=== PATIENT | male | born 1950 | race Caucasian/White ===

== ENCOUNTER 2020-11-01 09:57 | Inpatient (IN) | payer MEDICARE, OTHER ==
[~2020-11-01] VITALS: Ht 175.3 cm; Wt 75.7 kg
--- NOTE | 2020-11-01 08:20 | NUR ---
RN NOTES NOTED PT'S TEMP 100.6@2009. PRN MEDS GIVEN AND COOLING MEASURES PROVIDED. RESPIRATORY SUPERVISOR MADE AWARE. WILL RE-EVALUATE AFTER 30 MINUTES- 1 HOUR. WILL CONTINUE TO MONITOR Addendum: 11/01/20 at 2333 by CARLOS PURI RN correction: wrong time entry; should be 2020
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
[2020-11-01] MEDS ORDERED: EZET10TA6 PO (10:11)
[2020-11-01] MEDS ORDERED: METO25TA3 PO (10:11)
[2020-11-01] MEDS ORDERED: ERGO500014 PO (10:11)
[2020-11-01] MEDS ORDERED: DONE10TA44 PO (10:11)
[2020-11-01] MEDS ORDERED: METF-440 PO (10:11)
[2020-11-01] MEDS ORDERED: ICOS1CAP PO (10:11)
[2020-11-01] MEDS ORDERED: VALP250C3 PO (10:11)
[2020-11-01] MEDS ORDERED: PARO-64 PO (10:11)
[2020-11-01] MEDS ORDERED: ATOR10TA PO (10:11)
[2020-11-01] MEDS ORDERED: ACET-2605 PO (10:11)
[2020-11-01] MEDS ORDERED: CYAN-51 PO (10:11)
[2020-11-01] MEDS ORDERED: ASPI-1420 PO (10:11)
--- NOTE | 2020-11-01 10:11 | NUR ---
PATIENT TAKEN TO RADIOLOGY FOR CT.
--- NOTE | 2020-11-01 11:02 | NUR ---
CALLED DR. HERNANDEZ [phone]
--- NOTE | 2020-11-01 11:06 | NUR ---
CALLED JENNIFFER GUERIN [phone] IN SURGERY ASKED TO CALL US BACK.
--- NOTE | 2020-11-01 11:06 | NUR ---
CALLED FOR BED.
--- NOTE | 2020-11-01 11:25 | NUR ---
CEPHALOMETRIC TRACER AT BEDSIDE
[2020-11-01 11:36] LABS: BASOPHILS # (AUTO) 0.2 /CMM (0.0-0.2); BASOPHILS % (AUTO) 1.5 % (0.0-2.0); HEMATOCRIT 34 % (39-51); HEMOGLOBIN 11.4 g/dL (13.5-17.5); LYMPHOCYTES # (AUTO) 1.1 /CMM (0.8-4.8); LYMPHOCYTES % (AUTO) 9.4 % (20.0-44.0); MEAN CORPUSCULAR HGB CONC 34 g/dl (31.0-36.0); MEAN CORPUSCULAR VOLUME 89 fL (80-96); MONOCYTES # (AUTO) 1.6 /CMM (0.1-1.30); MONOCYTES % (AUTO) 13.5 % (2.0-12.0); NEUTROPHILS # (AUTO) 8.9 /CMM (1.8-8.9); NEUTROPHILS % (AUTO) 75.6 % (43.0-81.0); PLATELET COUNT (AUTO) 203 /CMM (150-450); RED BLOOD CELL COUNT(AUTO) 3.79 MIL/uL (4.5-6.0); WHITE BLOOD COUNT (AUTO) 11.8 K/uL (4.3-11.0)
[2020-11-01 11:40] LABS: CALCIUM, SERUM 8.8 mg/dL (8.5-10.1); CREATININE 1.1 mg/dL (0.6-1.3); POTASSIUM 4.6 mmol/L (3.5-5.1)
--- NOTE | 2020-11-01 11:47 | NUR ---
REPORT GIVEN TO CARLOS SILVA FOR [facility].
--- NOTE | 2020-11-01 11:48 | NUR ---
RECEIVED REPORT FROM BOOGIE SILVA FOR [facility].
--- NOTE | 2020-11-01 11:56 | NUR ---
LAB CALLED PT COVID RESULT NEGATIVE (-)
[2020-11-01] MEDS ORDERED: ACETAMINOPHEN 325 MG TABLET PO PRN (12:00)
[2020-11-01] MEDS ORDERED: MISCELLANEOUS MED 1 EA EA PO PRN (12:00)
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
--- NOTE | 2020-11-01 12:11 | NUR ---
PATIENT TRANSFERRED TO ROOM 108, NO DISTRESS NOTED.
[2020-11-01] MEDS ORDERED: MORPHINE SULFATE INJ 2 MG/ML DISP.SYRIN IV PRN (12:30)
[2020-11-01] MEDS ORDERED: MORPHINE SULFATE INJ 4 MG/ML DISP.SYRIN IV PRN (12:30)
[2020-11-01] MEDS ORDERED: ONDANSETRON HCL/PF 4 MG/2 ML VIAL IVP PRN (12:30)
--- NOTE | 2020-11-01 14:40 | NUR ---
SPOKE TO PATIENT'S BROTHER, RAYMUNDO SEE. PATIENT STATED THAT HE IS THE PRIMARY DECISION MAKER IN HIS BROTHER'S CARE. REQUESTS TO BE KEPT UP TO DATE REGARDING ORTHO CONSULT TO KNOW IF HIS BROTHER NEEDS SURGERY. PHONE NUMBER: [phone]
[2020-11-01 16:00] VITALS: BP 138/82
[2020-11-01] MEDS: VALPROIC ACID 250 MG/5 ML UDC PO SCH (16:42)
[2020-11-01] MEDS: METFORMIN 500 MG TABLET PO SCH (16:42)
--- NOTE | 2020-11-01 18:27 | NUR ---
CLOSING NOTE PATIENT IN BED, RESTING. NO S/S OF DISTRESS AT THIS TIME. WILL ENDORSE TO HELPER MARBLE FINISHER NURSE FOR [facility].
--- NOTE | 2020-11-01 19:30 | NUR ---
RN OPENING NOTES: RECEIVED PT A/OX 2-3 IN BED RESTING COMFORTABLY. PATIENT IN NO S/SX OF ACUTE DISTRESS AT THIS TIME. NO SOB NOTED. PATIENT'S BREATHING IS EVEN AND UNLABORED. PATIENT IS ON ROOM AIR; TOLERATING WELL; WITH 02 SAT OF >95%. PATIENT ON REGULAR DIET. NOTED IV SITE ON R FA: 20; PATENT, INTACT AND FLUSHING WELL; NO S/S OF INFECTION OR INFILTRATION.SAFETY MEASURES HAVE BEEN PROVIDED AND IMPLEMENTED. PATIENT BED ALARM IS ON. HEAD OF BED ELEVATED. BED IS LOCKED, IN LOWEST POSITION AND SIDE RAILS UP. CALL LIGHT WITHIN REACH OF THE PATIENT. APPLICABLE ISOLATION PRECAUTIONS IN PLACE. WILL CONTINUE TO MONITOR AND REASSESS FOR ANY CHANGES AND WILL CARRY OUT ANY ONGOING AND ACTIVE MD ORDER.
[2020-11-01 20:00] VITALS: BP 119/80
--- NOTE | 2020-11-01 20:20 | NUR ---
RN NOTES NOTED PT'S TEMP 100.6@2009. PRN MEDS GIVEN AND COOLING MEASURES PROVIDED. SPECIFICATION CONSULTANT MADE AWARE. WILL RE-EVALUATE AFTER 30 MINUTES- 1 HOUR. WILL CONTINUE TO MONITOR Addendum: 11/01/20 at 2334 by CARLOS PURI RN @2100 PT'S TEMP @98.2
[2020-11-01] MEDS: EZETIMIBE 10 MG TABLET PO SCH (21:28)
[2020-11-01] MEDS: DONEPEZIL 5 MG TABLET PO SCH (21:28)
[2020-11-01] MEDS: ATORVASTATIN 10 MG TABLET PO SCH (21:29)
--- NOTE | 2020-11-01 23:00 | NUR ---
RN NOTES NO CHANGE IN PATIENT CONDITION AT THIS TIME PATIENT VITALS STABLE, NO SIGNS OF ACUTE RESPIRATORY DISTRESS. BOBBIN HANDLER MADE AWARE. WILL CONTINUE TO MONITOR AND REASSESS FOR ANY CHANGES THROUGHOUT THE SHIFT.
--- NOTE | 2020-11-02 03:00 | NUR ---
RN NOTES PATIENT REMAINS IN NO ACUTE RESPIRATORY DISTRESS AT THIS TIME, NO CHANGES TO CONDITION/STATUS. QUALITY TECH WELL AWARE. WILL CONTINUE TO MONITOR AND REASSESS FOR ANY CHANGES THROUGHOUT THE SHIFT
[2020-11-02 04:00] VITALS: BP 118/71
[2020-11-02 06:29] LABS: BASOPHILS % (AUTO) 0.2 % (0.0-2.0); EOSINOPHILS % (AUTO) 0.2 % (0.0-6.0); HEMATOCRIT 30 % (39-51); HEMOGLOBIN 9.9 g/dL (13.5-17.5); LYMPHOCYTES # (AUTO) 2.3 /CMM (0.8-4.8); LYMPHOCYTES % (AUTO) 20.7 % (20.0-44.0); MEAN CORPUSCULAR HGB CONC 33 g/dl (31.0-36.0); MEAN CORPUSCULAR VOLUME 88 fL (80-96); MONOCYTES % (AUTO) 17.5 % (2.0-12.0); NEUTROPHILS % (AUTO) 61.4 % (43.0-81.0); PLATELET COUNT (AUTO) 173 /CMM (150-450); RED BLOOD CELL COUNT(AUTO) 3.41 MIL/uL (4.5-6.0); WHITE BLOOD COUNT (AUTO) 11.3 K/uL (4.3-11.0)
[2020-11-02 06:41] LABS: CALCIUM, SERUM 8.8 mg/dL (8.5-10.1); CREATININE 0.7 mg/dL (0.6-1.3); POTASSIUM 4.5 mmol/L (3.5-5.1)
--- NOTE | 2020-11-02 06:57 | NUR ---
RN CLOSING NOTE: PATIENT REMAINS IN ROOM RESTING COMFORTABLY.NO SIGNS OF RESPIRATORY DISTRESS PATIENT STILL ON ROOM AIR ;TOLERATING WELL SATURATING @ >95% SP02.PATIENT IS CLEAN , DRY AND COMFORTABLE THROUGHOUT THE SHIFT. ALL DUE MEDS GIVEN ORDERED ; PATIENT TOLERATED WELL. SAFETY MEASURES IMPLEMENTED, BED IN LOWEST POSITION, LOCKED, SIDE RAILS UP, CALL LIGHT WITHIN REACH. PATIENT ENDORSED TO INCOMING SHIFT RN WITH STABLE VITAL SIGN AND FOR CONTINUITY OF CARE.
--- NOTE | 2020-11-02 07:20 | NUR ---
RN OPENING NOTE PATIENT RECEIVED IN ROOM RESTING COMFORTABLY. NO SIGNS OF RESPIRATORY DISTRESS AND PATIENT ON ROOM AIR TOLERATING WELL SATURATING. SAFETY MEASURES IMPLEMENTED, BED LOCKED IN LOWEST POSITION, SIDE RAILS UP X2, CALL LIGHT WITHIN REACH. WILL CONTINUE TO MONITOR AND PROVIDE CARE THROUGHOUT SHIFT.
[2020-11-02] MEDS: PANTOPRAZOLE 40 MG VIAL IV SCH (08:48)
[2020-11-02] MEDS: VALPROIC ACID 250 MG/5 ML UDC PO SCH ×2 (08:50→17:00)
[2020-11-02] MEDS: PAROXETINE HCL 20 MG TABLET PO SCH (08:51)
[2020-11-02] MEDS: METFORMIN 500 MG TABLET PO SCH ×2 (08:51→17:01)
[2020-11-02] MEDS: ASPIRIN EC 81 MG TABLET.DR PO SCH (08:51)
[2020-11-02] MEDS: METOPROLOL SUCCINATE 25 MG TAB.SR.24H PO SCH (08:52)
[2020-11-02 10:03] LABS: LYMPHOCYTES % (MANUAL) 19 % (16-48); MONOCYTES % (MANUAL) 17 % (0-11.0); NEUTROPHILS % (MANUAL) 64 (42-76)
[2020-11-02 12:00] VITALS: BP 129/76
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
[2020-11-02] MEDS ORDERED: KETOROLAC TROMETHAMINE INJ 30 MG/ML VIAL IM PRN (15:30)
--- NOTE | 2020-11-02 16:56 | NUR ---
left message to re; hip fracture if any surgical consultation waiting for returning call back
--- NOTE | 2020-11-02 19:11 | NUR ---
RN CLOSING NOTE PATIENT IN ROOM RESTING COMFORTABLY. NO SIGNS OF RESPIRATORY DISTRESS AND PATIENT ON ROOM AIR TOLERATING WELL SATURATING. SAFETY MEASURES IMPLEMENTED, BED LOCKED IN LOWEST POSITION, SIDE RAILS UP X2, CALL LIGHT WITHIN REACH. UPPER ARM SLING APPLIED FOR SUPPORT. WILL ENDORSE CONTINUATION OF CARE TO UPCOMING SHIFT.
--- NOTE | 2020-11-02 19:30 | NUR ---
RN OPENING NOTES: RECEIVED PT A/OX 2-3 IN BED SLEEPING COMFORTABLY. PATIENT IN NO S/SX OF ACUTE DISTRESS AT THIS TIME. NO SOB NOTED. PATIENT'S BREATHING IS EVEN AND UNLABORED. PATIENT IS ON ROOM AIR; TOLERATING WELL; WITH 02 SAT OF 97% AT THE TIME OF RECEIVED. PATIENT ON REGULAR DIET. NOTED IV SITE ON R FA: 20; PATENT, INTACT AND FLUSHING WELL; NO S/S OF INFECTION OR INFILTRATION.SAFETY MEASURES HAVE BEEN PROVIDED AND IMPLEMENTED. PATIENT BED ALARM IS ON. HEAD OF BED ELEVATED. BED IS LOCKED, IN LOWEST POSITION AND SIDE RAILS UP. CALL LIGHT WITHIN REACH OF THE PATIENT. APPLICABLE ISOLATION PRECAUTIONS IN PLACE. WILL CONTINUE TO MONITOR AND REASSESS FOR ANY CHANGES AND WILL CARRY OUT ANY ONGOING AND ACTIVE MD ORDER.
[2020-11-02 20:00] VITALS: BP 99/60
[2020-11-02] MEDS: EZETIMIBE 10 MG TABLET PO SCH (21:34)
[2020-11-02] MEDS: DONEPEZIL 5 MG TABLET PO SCH (21:34)
[2020-11-02] MEDS: ATORVASTATIN 10 MG TABLET PO SCH (21:35)
--- NOTE | 2020-11-02 21:52 | NUR ---
RN NOTES RECEIVED CALL FROM DR. GUERIN, PROVIDED INFO ABOUT PT. PROVIDED XRAY RESULT OF THE PT XR HUMERUS AND HIP XR RESULTS. SAYS TO SECURE CONSENT FOR IM NAILING OF THE L HIP AND ONCE OBTAINED PUT PT ON NPO POST MIDNIGHT. BOILER TENDERS SUPERVISOR MADE AWARE. WILL SECURE CONSENT FOR THE UPCOMING PROCEDURE.
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
--- NOTE | 2020-11-02 23:00 | NUR ---
RN NOTES NO CHANGE IN PATIENT CONDITION AT THIS TIME PATIENT VITALS STABLE, NO SIGNS OF ACUTE RESPIRATORY DISTRESS. TELEVISION DIRECTOR MADE AWARE. WILL CONTINUE TO MONITOR AND REASSESS FOR ANY CHANGES THROUGHOUT THE SHIFT.
--- NOTE | 2020-11-03 03:00 | NUR ---
RN NOTES PATIENT REMAINS IN NO ACUTE RESPIRATORY DISTRESS AT THIS TIME, NO CHANGES TO CONDITION/STATUS. SALESPERSON FURS WELL AWARE. WILL CONTINUE TO MONITOR AND REASSESS FOR ANY CHANGES THROUGHOUT THE SHIFT
[2020-11-03 04:00] VITALS: BP 116/68
--- NOTE | 2020-11-03 06:42 | NUR ---
RN CLOSING NOTE: PATIENT REMAINS IN ROOM RESTING COMFORTABLY.NO SIGNS OF RESPIRATORY DISTRESS PATIENT STILL ON ROOM AIR ;TOLERATING WELL SATURATING @ >95% SP02.PATIENT IS CLEAN , DRY AND COMFORTABLE THROUGHOUT THE SHIFT. ALL DUE MEDS GIVEN ORDERED ; PATIENT TOLERATED WELL. SAFETY MEASURES IMPLEMENTED, BED IN LOWEST POSITION, LOCKED, SIDE RAILS UP, CALL LIGHT WITHIN REACH. PATIENT ENDORSED TO INCOMING SHIFT RN WITH STABLE VITAL SIGN AND FOR CONTINUITY OF CARE, WILL ENDORSE TO AM SHIFT RN THAT PT IS ALREADY ON NPO POST MIDNIGHT, DR. GUERIN WILL BE SCHEDULING PT FOR INTRAMEDULLARY NAILING OF THE L HIP, CONSENT SECURED AND PLACED IN THE CHART. PREOP CHECK LIST TO BE DONE AND COMPLETED. AM ENVIRONMENTAL PROJECTS ADVISOR MADE AWARE.
--- NOTE | 2020-11-03 07:24 | NUR ---
RN OPENING NOTE RECEIVED PATIENT AWAKE IN BED, A/O X2. NO PAIN OR DISTRESS NOTED. NO SOB NOTED. PATIENT'S BREATHING IS EVEN AND UNLABORED. ON ROOM AIR - TOLERATING WELL. IV SITE ON R FA - PATENT, INTACT AND FLUSHING WELL. SAFETY MEASURES IMPLEMENTED. BED ALARM ON. HEAD OF BED ELEVATED. BED IS LOCKED AND IN LOWEST POSITION. SIDE RAILS X3. CALL LIGHT WITHIN REACH. WILL CONTINUE TO MONITOR.
[2020-11-03] MEDS: METFORMIN 500 MG TABLET PO SCH ×2 (08:48→17:00)
[2020-11-03] MEDS: VALPROIC ACID 250 MG/5 ML UDC PO SCH ×2 (08:48→17:00)
[2020-11-03] MEDS: METOPROLOL SUCCINATE 25 MG TAB.SR.24H PO SCH (08:48)
[2020-11-03] MEDS: ASPIRIN EC 81 MG TABLET.DR PO SCH (08:48)
[2020-11-03] MEDS: PAROXETINE HCL 20 MG TABLET PO SCH (08:48)
[2020-11-03] MEDS: PANTOPRAZOLE 40 MG VIAL IV SCH (08:49)
[2020-11-03] MEDS ORDERED: VANCOMYCIN 1 GM VIAL ONE (09:57)
[2020-11-03] MEDS ORDERED: BACITRACIN 50000 UNITS/VIAL ONE (09:57)
[2020-11-03] MEDS ORDERED: BUPIVACAINE 0.5 % PF 150 MG/30 ML VIAL ONE (09:57)
--- NOTE | 2020-11-03 10:28 | NUR ---
WOUND CARE CONSULT: PT PRESENTS WITH INCONTINENCE, LEFT ARM DISCOLORATION, PRESENT ON ADMISSION. RECOMMENDATIONS MADE FOR SKIN PROTECTION. DISCUSSED WITH NURSING STAFF. MD IN AGREEMENT WITH PLAN OF CARE. CURRENT RAVEN SCORE IS 14.
[2020-11-03] MEDS: Z GUARD REMEDY 2 OZ OINT TP SCH (10:30)
[2020-11-03] MEDS ORDERED: Z GUARD REMEDY 2 OZ OINT TP PRN (10:30)
--- NOTE | 2020-11-03 10:40 | NUR ---
MS RN NOTE NEW ORDER GIVEN FOR Z GUARD - NOT NEEDED AT THIS TIME.
[2020-11-03 12:00] VITALS: BP 117/61
--- NOTE | 2020-11-03 12:45 | NUR ---
MS RN NOTE PATIENT LEFT FOR SURGERY TO OR.
[2020-11-03] MEDS ORDERED: FENTANYL PF 100MCG/2ML AMPUL ONE (12:54)
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
[2020-11-03] MEDS ORDERED: HYDROCODONE/APAP 10/325MG TABLET PO PRN (16:00)
[2020-11-03] MEDS ORDERED: MORPHINE SULFATE INJ 2 MG/ML DISP.SYRIN IV PRN (16:00)
[2020-11-03] MEDS: IV D5/0.45 NACL W/20 MEQ KCL 1L IV PRN (17:40)
--- NOTE | 2020-11-03 19:15 | NUR ---
PATIENT RECEIVED FROM OR AT 4:20 PM WITH ORDERS TO START IV D5 1/2 NS 1/2 NS + 20 KCL AT 75 ML/HR AND TO STOP FLUIDS ONCE PATIENT IS AWAKE AND CONSCIOUS AND THEN CONTINUE REGULAR MEDICATION. PATIENT CAN GET OUT OF BED IN MORNING WITH PT WITH 25% WEIGHT BEARING ON LEFT LEG. EVENING MEDICATION WERE NOT ADMINISTERED BECAUSE PATIENT WAS STILL SEDATED FROM SURGERY. SAFETY PRECAUTIONS IMPLEMENTED, SIDE RAILS UP X2, BED LOCKED IN LOWEST POSITION, CALL LIGHT WITHIN REACH. PATIENT ON O2 THERAPY VIA FACE MASK AT 3 LPM. WILL ENDORSE CARE TO UPCOMING SHIFT.
--- NOTE | 2020-11-03 19:30 | NUR ---
RN OPENING NOTES: RECEIVED PT A/OX 2-3 IN BED SLEEPING COMFORTABLY. PATIENT IN NO S/SX OF ACUTE DISTRESS AT THIS TIME. NO SOB NOTED. PATIENT'S BREATHING IS EVEN AND UNLABORED. PATIENT IS S/P INTRA MEDULLARY NAILING OF THE L HIP. PATIENT IS ON 3L OF 02 VIA FACE MASK; TOLERATING WELL; WITH 02 SAT OF >95% AT THE TIME OF RECEIVED. PATIENT ON REGULAR DIET. NOTED IV SITE ON R FA: 20; PATENT, INTACT AND FLUSHING WELL; NO S/S OF INFECTION OR INFILTRATION. SURGICAL WOUND DRESSING NOTED TO BE SECURED , DRY AND INTACT, NO SIGNS. SAFETY MEASURES HAVE BEEN PROVIDED AND IMPLEMENTED. PATIENT BED ALARM IS ON. HEAD OF BED ELEVATED. BED IS LOCKED, IN LOWEST POSITION AND SIDE RAILS UP. CALL LIGHT WITHIN REACH OF THE PATIENT. APPLICABLE ISOLATION PRECAUTIONS IN PLACE. WILL CONTINUE TO MONITOR AND REASSESS FOR ANY CHANGES AND WILL CARRY OUT ANY ONGOING AND ACTIVE MD ORDER.
[2020-11-03 20:00] VITALS: BP 100/61
--- NOTE | 2020-11-03 21:25 | NUR ---
RN NOTES PATIENT'S FAMILY CALLED TO GET UPDATES. SPOKE WITH (RAYMUNDO SEE), PROVIDED GENERAL UPDATES ABOUT PT'S CONDITION. ADVISED PT'S RELATIVE TO CALLBACK IN THE MORNING TO TALK TO MD FOR MORE SPECIFIC INFO ABOUT TREATMENT PLAN. ASSURED PATIENT RELATIVE THAT WILL KEEP THEM POSTED FOR ANY SUDDEN CHANGES TO PT'S CONDITION. FAMILY VERY THANKFUL ABOUT CARE BEING PROVIDED TO THE PATIENT. RN ACKNOWLEDGED.
[2020-11-03] MEDS: DONEPEZIL 5 MG TABLET PO SCH (22:00)
[2020-11-03] MEDS: ATORVASTATIN 10 MG TABLET PO SCH (22:00)
[2020-11-03] MEDS: EZETIMIBE 10 MG TABLET PO SCH (22:00)
--- NOTE | 2020-11-03 22:02 | NUR ---
RN NOTES HELD (3) ORAL MEDICATIONS (ARICEPT, LIPITOR AND ZETIA) DUE AT 2200; PT IS STILL LETHARGIC S/P IM NAILING OF THE L HIP. ANALYTICAL STATISTICIAN MADE AWARE. WILL CONTINUE TO MONITOR AND ASSESS THROUGHOUT THE SHIFT.
[2020-11-03] MEDS: ANCEF 1 GM/50 ML D5W IV SCH (22:05)
--- NOTE | 2020-11-03 23:00 | NUR ---
RN NOTES NO CHANGE IN PATIENT CONDITION AT THIS TIME PATIENT VITALS STABLE, NO SIGNS OF ACUTE RESPIRATORY DISTRESS. PATIENT IS STILL LETHARGIC AT THIS TIME. ONCE PATIENT IS FULLY AWAKE WILL RESUME ORAL MEDS TO BE GIVEN AND RESUME REGULAR DIET . AFLOAT CRYPTOLOGIC MANAGER MADE AWARE. WILL CONTINUE TO MONITOR AND REASSESS FOR ANY CHANGES THROUGHOUT THE SHIFT.
--- NOTE | 2020-11-04 03:00 | NUR ---
RN NOTES PATIENT REMAINS IN NO ACUTE RESPIRATORY DISTRESS AT THIS TIME, NO CHANGES TO CONDITION/STATUS. MAINFRAME SYSTEMS ADMINISTRATOR WELL AWARE. WILL CONTINUE TO MONITOR AND REASSESS FOR ANY CHANGES THROUGHOUT THE SHIFT
[2020-11-04 04:00] VITALS: BP 92/66
[2020-11-04] MEDS: ANCEF 1 GM/50 ML D5W IV SCH (05:28)
[2020-11-04] MEDS: IV D5/0.45 NACL W/20 MEQ KCL 1L IV PRN ×2 (06:30→21:34)
--- NOTE | 2020-11-04 06:50 | NUR ---
RN CLOSING NOTE: PATIENT REMAINS IN ROOM RESTING COMFORTABLY;NO SIGNS OF RESPIRATORY DISTRESS PATIENT STILL ON ROOM AIR ;TOLERATING WELL SATURATING @ >95% SP02. PT IS ALREADY FULLY AWAKE AND ABLE TO START DRINGKING WATER WITH NO PROBLEM. PATIENT IS CLEAN , DRY AND COMFORTABLE THROUGHOUT THE SHIFT. ALL DUE MEDS GIVEN ORDERED ; PATIENT TOLERATED WELL. SAFETY MEASURES IMPLEMENTED, BED IN LOWEST POSITION, LOCKED, SIDE RAILS UP, CALL LIGHT WITHIN REACH. PATIENT ENDORSED TO INCOMING SHIFT RN WITH STABLE VITAL SIGN AND FOR CONTINUITY OF CARE Addendum: 11/04/20 at 0653 by CARLOS PURI RN CORRECTION PT ON 3L OF O2 VIA NC AT THE TIME OF ENDORSEMENT
[2020-11-04 08:00] VITALS: BP 129/68
--- NOTE | 2020-11-04 08:01 | NUR ---
MS RN OPENING NOTES RECEIVED PATIENT IN BED, AWAKE, A/O X2. PATIENT ON ROOM AIR; BREATHING EVEN AND UNLABORED. NO COMPLAINS OF PAIN AT THIS TIME. IV ACCESS AT RFA G # 20 PRESENT AND INTACT. SAFETY PRECAUTIONS IN PLACE; BED IN LOW POSITION AND LOCKED, RAILS UP X2, CALL LIGHT WITHIN REACH. WILL CONTINUE TO MONITOR PATIENT.
[2020-11-04] MEDS: VALPROIC ACID 250 MG/5 ML UDC PO SCH ×2 (08:13→16:11)
[2020-11-04] MEDS: METFORMIN 500 MG TABLET PO SCH ×2 (08:13→16:11)
[2020-11-04] MEDS: PAROXETINE HCL 20 MG TABLET PO SCH (08:13)
[2020-11-04] MEDS: ASPIRIN EC 81 MG TABLET.DR PO SCH (08:13)
[2020-11-04] MEDS: Z GUARD REMEDY 2 OZ OINT TP SCH (08:14)
[2020-11-04] MEDS: METOPROLOL SUCCINATE 25 MG TAB.SR.24H PO SCH (08:14)
[2020-11-04 16:57] VITALS: BP 102/52
--- NOTE | 2020-11-04 18:33 | NUR ---
MS RN CLOSING NOTES PATIENT REMAINS IN BED, ASLEEP AT THIS TIME. PATIENT ON OXYGEN THERAPY AT 3 LPM VIA NASAL CANNULA; BREATHING EVEN AND UNLABORED. NO COMPLAINS OF PAIN DURING THE SHIFT. IV ACCESS AT RFA G # 20 PRESENT AND INTACT. LOVE CATH IN PLACE WITH DAILY OUTPUT OF 600 [address]. SAFETY PRECAUTIONS IN PLACE; BED IN LOW POSITION AND LOCKED, RAILS UP X2, CALL LIGHT WITHIN REACH. WILL ENDORSE TO SENIOR TRIAL ATTORNEY NURSE.
[2020-11-04 20:00] VITALS: BP 116/59
[2020-11-04] MEDS: DONEPEZIL 5 MG TABLET PO SCH (21:28)
[2020-11-04] MEDS: EZETIMIBE 10 MG TABLET PO SCH (21:28)
[2020-11-04] MEDS: ATORVASTATIN 10 MG TABLET PO SCH (21:29)
[2020-11-05 04:00] VITALS: BP 109/53
--- NOTE | 2020-11-05 06:59 | NUR ---
RN notes In bed resting comfortably complaining of generalized pain. Gave Morphine x2 and percocet with relief. On 4 liters oxygen tolerating well. Breathing even and unlabored. Vital signs within normal limits. Alert and oriented, able to verbalize needs. Endorsed to next shift for continuity of care.
[2020-11-05 08:00] VITALS: BP 123/66
[2020-11-05] MEDS: METOPROLOL SUCCINATE 25 MG TAB.SR.24H PO SCH (08:46)
[2020-11-05] MEDS: PAROXETINE HCL 20 MG TABLET PO SCH (08:46)
[2020-11-05] MEDS: VALPROIC ACID 250 MG/5 ML UDC PO SCH ×2 (08:46→16:48)
[2020-11-05] MEDS: METFORMIN 500 MG TABLET PO SCH ×2 (08:46→16:48)
[2020-11-05] MEDS: ASPIRIN EC 81 MG TABLET.DR PO SCH (08:46)
[2020-11-05] MEDS: Z GUARD REMEDY 2 OZ OINT TP SCH (08:46)
[2020-11-05] MEDS: PANTOPRAZOLE 40 MG TABLET.DR PO SCH (08:56)
[2020-11-05] MEDS: IV D5/0.45 NACL W/20 MEQ KCL 1L IV PRN (11:44)
[2020-11-05 16:00] VITALS: BP 147/63
--- NOTE | 2020-11-05 19:30 | NUR ---
RN OPENING NOTE RECEIVED PATIENT IN BED RESTING ALERT ORIENTED X2-3 VERBALLY RESPONSIVE ON 4L OXYGEN VIA NASAL CANNULA, O2:93% IV SITE IS ON RIGHT AC INTACT PATENT LOVE CATHETER IN PLACE URINE DRAINING YELLOW/CLEAR BY GRAVITY,SAFETY MEASURE IMPLEMENT,KEEP CALL LIGHT WITHIN REACH,BED IN LOW POSITION AND LOCKED CONTINUE TO MONITOR.
[2020-11-05] MEDS: DONEPEZIL 5 MG TABLET PO SCH (21:12)
[2020-11-05] MEDS: ATORVASTATIN 10 MG TABLET PO SCH (21:12)
[2020-11-05] MEDS: EZETIMIBE 10 MG TABLET PO SCH (21:12)
[2020-11-06] VITALS (12 sets, daily range): BP systolic 104–142; BP diastolic 61–77
--- NOTE | 2020-11-06 06:59 | NUR ---
RN CLOSING NOTE PATIENT REMAINS ON ALERT ORIENTED X2-3 ON 4L OXYGEN VIA NASAL CANNULA,O2:98% NO SOB NOT ACUTE DISTRESS NOTED,LOVE CATHETER IN PLACE URINE DRAINING YELLOW/CLEAR,ALL DUE MEDS GIVEN MD ORDERED KEPT CLEAN AND DRY ALL THE TIME,KEPT COMFORTABLE,ALL NEEDS MET.ENDORE NEXT COMING SHIFT FOR CONTINUATION OF CARE.
--- NOTE | 2020-11-06 07:33 | NUR ---
RN OPENING NOTE PATIENT IS CURRENTLY IN BED WITH HOB AT SEMI FOWLERS POSITION. CURRENTLY ON 4L NC WITH NO SIGNS OF LABORED BREATHING. PATIENT IS AOX2. PATIENT'S LEFT ARM HAS SLING APPLIED. RAC IV ACCESS IS PATENT, INTACT, AND HAS NO SIGNS OF INFILTRATION. BED IS LOCKED IN THE LOWEST POSITION, 3 GUARD RAILS RAISED, AND ALL HOSPITAL SAFETY PRECAUTIONS ARE BEING FOLLOWED. WILL CONTINUE TO MONITOR THROUGHOUT SHIFT.
[2020-11-06] MEDS: METOPROLOL SUCCINATE 25 MG TAB.SR.24H PO SCH (08:11)
[2020-11-06] MEDS: PAROXETINE HCL 20 MG TABLET PO SCH (08:11)
[2020-11-06] MEDS: Z GUARD REMEDY 2 OZ OINT TP SCH (08:12)
[2020-11-06] MEDS: PANTOPRAZOLE 40 MG TABLET.DR PO SCH (08:12)
[2020-11-06] MEDS: VALPROIC ACID 250 MG/5 ML UDC PO SCH ×2 (08:12→16:38)
[2020-11-06] MEDS: METFORMIN 500 MG TABLET PO SCH ×2 (08:12→16:38)
[2020-11-06] MEDS: ASPIRIN EC 81 MG TABLET.DR PO SCH (08:12)
[2020-11-06 13:49] LABS: BASOPHILS % (AUTO) 0.4 % (0.0-2.0); EOSINOPHILS % (AUTO) 5.5 % (0.0-6.0); LYMPHOCYTES # (AUTO) 1.2 /CMM (0.8-4.8); LYMPHOCYTES % (AUTO) 16.3 % (20.0-44.0); MEAN CORPUSCULAR HGB CONC 34 g/dl (31.0-36.0); MEAN CORPUSCULAR VOLUME 89 fL (80-96); MONOCYTES # (AUTO) 0.8 /CMM (0.1-1.30); MONOCYTES % (AUTO) 10.9 % (2.0-12.0); NEUTROPHILS # (AUTO) 4.9 /CMM (1.8-8.9); NEUTROPHILS % (AUTO) 66.9 % (43.0-81.0); PLATELET COUNT (AUTO) 247 /CMM (150-450); RED BLOOD CELL COUNT(AUTO) 2.15 MIL/uL (4.5-6.0); WHITE BLOOD COUNT (AUTO) 7.4 K/uL (4.3-11.0)
[2020-11-06 14:02] LABS: HEMATOCRIT 19 % (39-51); HEMOGLOBIN 6.4 g/dL (13.5-17.5)
--- NOTE | 2020-11-06 14:10 | NUR ---
H/H 6.11/20 DR. HERNANDEZ NOTIFIED CANCELLED DISCHARGE AND ORDERED 1 UNIT PRBC.DONTRELL DUMONT MADE AWARE.BROTHER MAIDA SEE CONSENTED FOR BLOOD WITNESSED BY ANOTHER RN RUSS [phone] AND OK FOR IMMUNIZATION .
[2020-11-06] MEDS ORDERED: INFLUENZA VACCINE 2020-21 0.5 ML DISP.SYRIN IM ONE (16:00)
[2020-11-06] MEDS ORDERED: PNEUMOCOCCAL 23-VAL P-SAC VAC 0.5 ML VIAL SQ ONE (16:00)
--- NOTE | 2020-11-06 18:42 | NUR ---
RN CLOSING NOTE PATIENT IS CURRENTLY IN BED WITH HOB AT SEMI FOWLERS POSITION. CURRENTLY ON 4L NC WITH NO SIGNS OF LABORED BREATHING. PATIENT IS AOX2. PATIENT'S LEFT ARM HAS SLING APPLIED. RAC #20 I IS PATENT, INTACT, AND HAS NO SIGNS OF INFILTRATION. RBC ARE CURRENTLY INFUSING. BED IS LOCKED IN THE LOWEST POSITION, 3 GUARD RAILS RAISED, AND ALL HOSPITAL SAFETY PRECAUTIONS ARE BEING FOLLOWED. ALL DUE MEDS GIVEN. WILL ENDORSE TO BOX PRINTING MACHINE OPERATOR RN FOR [place].
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
[2020-11-06] MEDS: EZETIMIBE 10 MG TABLET PO SCH (21:05)
[2020-11-06] MEDS: ATORVASTATIN 10 MG TABLET PO SCH (21:05)
[2020-11-06] MEDS: DONEPEZIL 5 MG TABLET PO SCH (21:05)
--- NOTE | 2020-11-06 21:10 | NUR ---
notified dr quintero regarding completion of blood transfusion, new orders of AM LABS for CBC and BMP carried out.
--- NOTE | 2020-11-07 01:33 | NUR ---
upon rounds, pt is awake at this time, verbalizes he would like to go back to sleep. pt denies pain at this time. will cont to monitor.
[2020-11-07 04:00] VITALS: BP 119/75
[2020-11-07 06:00] LABS: BASOPHILS % (AUTO) 0.4 % (0.0-2.0); EOSINOPHILS % (AUTO) 5.4 % (0.0-6.0); HEMATOCRIT 23 % (39-51); HEMOGLOBIN 7.7 g/dL (13.5-17.5); LYMPHOCYTES # (AUTO) 1.3 /CMM (0.8-4.8); LYMPHOCYTES % (AUTO) 16.2 % (20.0-44.0); MEAN CORPUSCULAR HGB CONC 34 g/dl (31.0-36.0); MEAN CORPUSCULAR VOLUME 88 fL (80-96); MONOCYTES # (AUTO) 0.8 /CMM (0.1-1.30); MONOCYTES % (AUTO) 10.4 % (2.0-12.0); NEUTROPHILS # (AUTO) 5.5 /CMM (1.8-8.9); NEUTROPHILS % (AUTO) 67.6 % (43.0-81.0); PLATELET COUNT (AUTO) 252 /CMM (150-450); RED BLOOD CELL COUNT(AUTO) 2.59 MIL/uL (4.5-6.0); WHITE BLOOD COUNT (AUTO) 8.2 K/uL (4.3-11.0)
--- NOTE | 2020-11-07 06:31 | NUR ---
Rn closing notes Pt remains in bed, no significant changes. Cooperative with care. bed bath done, oral care done. All due meds given. All needs attended. pt remains afebrile at this time. Pt turned and repositioned q2h. left arm in sling. pt denies pain. safety measures in place. Hob elevated bed locked in lowest position, side rails up x2, call light within reach. Will endorse to oncoming nurse for continuation of care.
[2020-11-07 07:00] LABS: CALCIUM, SERUM 7.7 mg/dL (8.5-10.1); CREATININE 0.5 mg/dL (0.6-1.3); POTASSIUM 4.1 mmol/L (3.5-5.1)
[2020-11-07] MEDS: PANTOPRAZOLE 40 MG TABLET.DR PO SCH (07:45)
--- NOTE | 2020-11-07 07:52 | NUR ---
RN OPENING NOTE RECEIVED PATIENT IN BED AO X 2, CONFUSED, DOES NO APPEARS PAIN OR DISCOMFORT, ABLE TO RESPONDS ALL STIMULI. RESPIRATORY EVEN AND UNLABORED WITH OXYGEN AT 4L VIA NC, SKIN IS WARM TO TOUCH KEEP CLEAN/DRY, INTACT IV SITE. KEPT ELEVATED HOB FOR ASPIRATION PRECAUTION AND ENSURE AIRWAY, ALSO LOWEST BED POSITION FIR SAFETY. CALL LIGHT WITHIN REACH, WILL CONTINUE TO MONITOR.
[2020-11-07] MEDS: PAROXETINE HCL 20 MG TABLET PO SCH (08:31)
[2020-11-07] MEDS: VALPROIC ACID 250 MG/5 ML UDC PO SCH (08:31)
[2020-11-07 08:32] VITALS: BP 138/72
[2020-11-07] MEDS: METFORMIN 500 MG TABLET PO SCH (08:32)
[2020-11-07] MEDS: ASPIRIN EC 81 MG TABLET.DR PO SCH (08:32)
[2020-11-07] MEDS: METOPROLOL SUCCINATE 25 MG TAB.SR.24H PO SCH (08:32)
[2020-11-07] MEDS: Z GUARD REMEDY 2 OZ OINT TP SCH (08:32)
[2020-11-07 09:45] LABS: BAND % (MANUAL) 1 % (0.0-5.0); EOSINOPHILS % (MANUAL) 2 % (0-4); LYMPHOCYTES % (MANUAL) 21 % (16-48); MONOCYTES % (MANUAL) 7 % (0-11.0); MYELOCYTES % 2 % (0-0); NEUTROPHILS % (MANUAL) 67 (42-76)
--- NOTE | 2020-11-07 14:42 | NUR ---
PATIENT DISCHARGE TO [facility], GIVEN REPORT [facility].
--- NOTE | 2020-11-07 15:30 | NUR ---
2EMTs picked up patient and given report, patient in stable condition.
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
== END 2020-11-07 15:35 | DRG 480 ==
LOC: ER 09:59 → MEDSG1 11:44
PROVIDERS: ADMIT Legal Medicine; ATTEND Legal Medicine
PROC: 0QS706Z Reposition Left Upper Femur with Intramedullary Internal Fixation Device, Open Approach (ICD-10-PCS; principal; 2020-11-03)
PROC: 30233N1 Transfusion of Nonautologous Red Blood Cells into Peripheral Vein, Percutaneous Approach (ICD-10-PCS; 2020-11-06)
DX: S72.142A Displaced intertrochanteric fracture of left femur, initial encounter for closed fracture (principal); N17.0 Acute kidney failure with tubular necrosis; S42.212A Unspecified displaced fracture of surgical neck of left humerus, initial encounter for closed fracture; E11.9 Type 2 diabetes mellitus without complications; E78.5 Hyperlipidemia, unspecified; F03.90 Unspecified dementia, unspecified severity, without behavioral disturbance, psychotic disturbance, mood disturbance, and anxiety; I10 Essential (primary) hypertension; D63.8 Anemia in other chronic diseases classified elsewhere; Z20.822 Contact with and (suspected) exposure to COVID-19; W06.XXXA Fall from bed, initial encounter; Y93.9 Activity, unspecified; Y92.89 Other specified places as the place of occurrence of the external cause; Z79.84 Long term (current) use of oral hypoglycemic drugs
CPT/HCPCS: 36415; 70450-TC; 73020; 73060-TC; 73502; 80048-TC; 85025-TC; 85730-TC; 86850-TC; 87081-TC; 90732; 93307-TC; 97110-TC; 97112-TC; 97530-TC; A4565; A6209; C1713; C9113; G0378; J0690; J1100; J1885; J2405; J2704; J2765; J3010; J3370; J3480; J3490; J7030; J7060; P9016-BL; Q2036

== ENCOUNTER 2022-05-16 14:59 | Emergency (ER) | payer MEDICARE, OTHER ==
[~2022-05-16] VITALS: Ht 170.2 cm; Wt 74.4 kg
[~2022-05-16 14:59] MED LIST: ACET-2605 PO; ASPI-1420 PO; ATOR10TA PO; CYAN-51 PO; DONE10TA44 PO; ERGO500093 PO; EZET10TA16 PO; ICOS1CAP PO; METF-440 PO; METO25TA3 PO; PARO-64 PO; VALP250C3 PO
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
--- NOTE | 2022-05-16 17:20 | NUR ---
[facility] CALLED FOR TRANSPORT ETA 60 MINS.
--- NOTE | 2022-05-16 19:04 | NUR ---
PICKED UP BY TRANSPORT IN STABLE CONDITION
--- NOTE | 2022-05-16 19:07 | NUR ---
Patient discharged to home in stable condition. Written and verbal after care instructions given. Patient verbalizes understanding of instruction.
[2022-05-16 19:09] VITALS: BP 126/64
== END 2022-05-16 19:09 | disposition home or self-care (01) ==
LOC: ER 15:01
DX: S01.81XA Laceration without foreign body of other part of head, initial encounter (principal); E78.5 Hyperlipidemia, unspecified; Z79.1 Long term (current) use of non-steroidal anti-inflammatories (NSAID); Z79.84 Long term (current) use of oral hypoglycemic drugs; Z79.899 Other long term (current) drug therapy; W18.30XA Fall on same level, unspecified, initial encounter; Y93.E1 Activity, personal bathing and showering; Y92.129 Unspecified place in nursing home as the place of occurrence of the external cause; Y99.8 Other external cause status
CPT/HCPCS: 70450-TC; 72125-TC